=== PATIENT | male | born 2000 | race Caucasian/White ===

== ENCOUNTER 2021-12-04 02:09 | Emergency (ER) | payer OTHER ==
[~2021-12-04] VITALS: Ht 182.9 cm; Wt 113.6 kg
[2021-12-04 02:19] VITALS: TEMP 97
[2021-12-04 02:49] LABS: POTASSIUM 3.3 mmol/L (3.5-4.5)
[2021-12-04 02:53] LABS: ALBUMIN 4.2 gm/dL (3.5-5.0); CREATININE, serum 1.04 mg/dL (0.72-1.25); PHOSPHOROUS 4.6 mg/dL (2.3-4.7)
[2021-12-04 09:40] VITALS: BP 146/50; PULSE 70
== END 2021-12-04 09:40 | disposition home or self-care (01) ==
LOC: COL.ER 02:09
PROVIDERS: Emergency Medicine
DX: S09.90XA Unspecified injury of head, initial encounter (principal); S00.03XA Contusion of scalp, initial encounter; F10.129 Alcohol abuse with intoxication, unspecified; Y90.8 Blood alcohol level of 240 mg/100 ml or more; W01.198A Fall on same level from slipping, tripping and stumbling with subsequent striking against other object, initial encounter
CPT/HCPCS: J2765; J7120